=== PATIENT | female | born 1995 | race Hispanic/Latino ===

== ENCOUNTER 2021-12-03 08:25 | Inpatient (IN) | payer OTHER ==
[2021-12-03 09:03] VITALS: BMI 31.8
[2021-12-03] MEDS ORDERED: hydrALAZINE 20 MG/ML VIAL SLOW IVP PRN (09:25)
[2021-12-03 09:58] LABS: Bilirubin Neg (Negative); Blood, Urine Negative (Negative); Clarity Slightly Cloudy (Clear); Glucose, Urine (Dipstick) Normal (Negative); Ketone, Urine 5 mg/dL (Negative); Leukocyte 100 (Negative); Nitrite Positive (Negative); Protein, Urine (Dipstick) 15 mg/dl (Neg-Trace); Specific Gravity, Urine 1.005 (1.002-1.036)
[2021-12-03 10:11] LABS: Anion Gap 17 mmol/L (10-20); BUN (Urea Nitrogen) 4 mg/dL (7.0-18.7); Calc. Creatinine Clearance 167 mL/min (70-130); Calcium 8.5 mg/dL (7.8-10.44); Carbon Dioxide 18 mmol/L (22-29); Chloride 103 mmol/L (98-107); Glucose 76 mg/dL (70-105); Sodium 133 mmol/L (136-145)
[2021-12-03 10:19] LABS: Fetal Membranes Rupture No Membranes Rupture (No Rupture); Potassium 4.7 mmol/L (3.5-5.1)
[2021-12-03 10:21] LABS: #Basophils 0.1 10x3/uL (0.0-0.2); #Monocytes 1.3 10x3/uL (0.0-1.1); #Neutrophils 11.4 10x3/uL (1.5-8.4); %Basophils 0.3 % (0.0-2.0); %Eosinophils 0.1 % (0.0-6.0); %Lymphocytes 11.7 % (18.0-47.0); %Monocytes 9.1 % (0.0-10.0); %Neutrophils 78.3 % (40.0-75.0); Hemoglobin 10.3 g/dL (12.0-15.5); Mean Corpuscular HGB CONC 32.9 g/dL (32.0-36.0); Mean Corpuscular Hemoglobin 26.5 pg (27.0-33.0); Mean Corpuscular Volume 80.7 fl (81.6-98.3); Mean Platelet Volume 10.4 fl (7.4-10.4); Platelet Count 323 10x3/uL (150-450); RBC Distribution Width 14.2 % (11.5-14.5); Red Blood Cell (RBC) Count 3.88 10x6/uL (3.90-5.03); White Blood Cell (WBC) Count 14.6 10x3/uL (3.5-10.5)
[2021-12-03 10:29] LABS: Bacteria/HPF 3+ HPF (None Seen)
[2021-12-03] MEDS ORDERED: cefTRIAXone\\ROCEPHIN 2 GM in Sodium Chloride 0.9% 100 ML IVPB SCH (11:00)
[2021-12-03] MEDS: Sodium Chloride 0.9% 1,000 ML IV SCH ×2 (11:45→19:40)
[2021-12-03] MEDS: Acetaminophen 500 MG TAB PO PRN ×2 (12:58→19:35)
[2021-12-03 13:42] LABS: Bilirubin Neg (Negative); Blood, Urine 25 (Negative); Clarity Clear (Clear); Glucose, Urine (Dipstick) Normal (Negative); Ketone, Urine Negative (Negative); Leukocyte 500 (Negative); Nitrite Negative (Negative); Protein, Urine (Dipstick) Negative (Neg-Trace); Specific Gravity, Urine 1.005 (1.002-1.036)
[2021-12-03 14:08] LABS: Bacteria/HPF None Seen HPF (None Seen); RBC/HPF 0-3 HPF (0-3); Squamous Epithelial 0-3 HPF (0-3)
[2021-12-04] MEDS: Acetaminophen 500 MG TAB PO PRN ×2 (03:56→18:17)
[2021-12-04] MEDS: Sodium Chloride 0.9% 1,000 ML IV SCH (03:57)
[2021-12-04] MEDS: cefTRIAXone\\ROCEPHIN 1 GM in Sodium Chloride 0.9% 100 ML IVPB SCH (11:05)
[2021-12-04] MEDS: Prenatal Vitamin 1 TAB PO SCH (11:05)
[2021-12-05] MEDS: Prenatal Vitamin 1 TAB PO SCH (09:06)
[2021-12-05] MEDS: cefTRIAXone\\ROCEPHIN 1 GM in Sodium Chloride 0.9% 100 ML IVPB SCH (12:12)
[2021-12-05] MEDS: Acetaminophen 500 MG TAB PO PRN (12:15)
[2021-12-05 16:45] VITALS: BP 103/59; TEMP 97.9
== END 2021-12-05 17:44 | disposition home or self-care (01) | DRG 833 ==
LOC: CSHLD/OP 08:25 → CSHANTE 13:52
PROVIDERS: ADMIT Obstetrics & Gynecology; ATTEND Obstetrics & Gynecology
DX: O23.03 Infections of kidney in pregnancy, third trimester (principal); Z3A.30 30 weeks gestation of pregnancy; Z20.822 Contact with and (suspected) exposure to COVID-19; D64.9 Anemia, unspecified; O99.013 Anemia complicating pregnancy, third trimester
CPT/HCPCS: 36415; 76770; 80048; 81001; 84112; 85025; 87077; 87086; 87186; J0696; J3490; J7050

== ENCOUNTER 2022-02-04 02:33 | Inpatient (IN) | payer OTHER ==
[2022-02-04] MEDS ORDERED: Ibuprofen 800 MG TAB PO PRN (03:12)
[2022-02-04] MEDS ORDERED: Lidocaine 1% (PF) 30 ML VIAL SC PRN (03:12)
[2022-02-04] MEDS ORDERED: Carboprost 250 MCG/ML AMP IM PRN (03:12)
[2022-02-04] MEDS ORDERED: HYDROcodone/Acetaminophen 5/325 mg Tablet PO PRN ×4 (03:12→11:31)
[2022-02-04] MEDS ORDERED: Methylergonovine 0.2 MG/ML VIAL IM PRN (03:12)
[2022-02-04] MEDS ORDERED: Misoprostol 200 MCG TAB PR PRN (03:12)
[2022-02-04] MEDS ORDERED: Ondansetron PF 4 MG/2 ML Vial IVP PRN ×2 (03:14→11:31)
[2022-02-04] MEDS ORDERED: Docusate 100 MG CAP PO PRN (03:14)
[2022-02-04] MEDS ORDERED: Promethazine HCl 25 MG/ML VIAL IM PRN (03:14)
[2022-02-04] MEDS ORDERED: Acetaminophen 500 MG TAB PO PRN (03:14)
[2022-02-04] MEDS ORDERED: hydrALAZINE 20 MG/ML VIAL SLOW IVP PRN ×2 (03:14→11:31)
[2022-02-04] MEDS ORDERED: NS w/ Oxytocin 30 units 500 ML IV SCH ×3 (03:15→11:31)
[2022-02-04 03:19] VITALS: BMI 31.8
[2022-02-04 04:05] LABS: Hep B Surf Ag Non-Reactive S/CO (NonReactive); Syphilis Antibody Nonreactive (Nonreactive); Syphilis Antibody Index 0.08 S/CO (<1.00 Non-Reactive)
[2022-02-04 04:06] LABS: Hemoglobin 10.7 g/dL (12.0-15.5); Mean Corpuscular HGB CONC 31.7 g/dL (32.0-36.0); Mean Corpuscular Hemoglobin 24.8 pg (27.0-33.0); Mean Corpuscular Volume 78.4 fl (81.6-98.3); Mean Platelet Volume 11.9 fl (7.4-10.4); Platelet Count 306 10x3/uL (150-450); RBC Distribution Width 16.3 % (11.5-14.5); Red Blood Cell (RBC) Count 4.31 10x6/uL (3.90-5.03); White Blood Cell (WBC) Count 10.9 10x3/uL (3.5-10.5)
[2022-02-04 04:54] LABS: SARS-CoV-2 NAA Rapid Test Not Detected (NotDetected)
[2022-02-04] MEDS ORDERED: NS w/ Oxytocin 30 units 500 ML ONE (08:55)
[2022-02-04] MEDS ORDERED: Bisacodyl 10 MG SUPP PR PRN (11:31)
[2022-02-04] MEDS ORDERED: Milk Of Magnesia 30 ML UDCUP PO PRN (11:31)
[2022-02-04] MEDS ORDERED: Boostrix 0.5 ML (Tdap) VIAL IM ONE (11:31)
[2022-02-04] MEDS ORDERED: diphenhydrAMINE 25 MG CAP PO PRN (11:31)
[2022-02-04] MEDS ORDERED: Benzocaine-Menthol 82.5 ML CAN TOP PRN (11:31)
[2022-02-04] MEDS ORDERED: Preparation H Ointment 28 GM TUBE PR PRN (11:31)
[2022-02-04] MEDS ORDERED: Lanolin Ointment 7 GM TUBE TOP PRN (11:31)
[2022-02-04] MEDS: Ferrous Sulfate 325 MG TAB PO SCH (19:44)
[2022-02-04] MEDS: Ibuprofen 800 MG TAB PO SCH ×2 (19:44→21:33)
[2022-02-04] MEDS: Docusate 100 MG CAP PO SCH (21:33)
[2022-02-05] MEDS: Ibuprofen 800 MG TAB PO SCH (05:42)
[2022-02-05 07:43] VITALS: BP 110/56; TEMP 98.2
[2022-02-05] MEDS: Ferrous Sulfate 325 MG TAB PO SCH (08:52)
[2022-02-05] MEDS: Docusate 100 MG CAP PO SCH (08:53)
[2022-02-05] MEDS ORDERED: Prenatal Vitamin 1 TAB PO SCH (09:00)
== END 2022-02-05 13:40 | disposition home or self-care (01) | DRG 807 ==
LOC: CSHLD/OP 02:33 → CSHLD 04:17 → CSHPED 16:00
PROVIDERS: ADMIT Obstetrics & Gynecology; ATTEND Obstetrics & Gynecology
PROC: 10E0XZZ Delivery of Products of Conception, External Approach (ICD-10-PCS; principal; 2022-02-04)
DX: O80 Encounter for full-term uncomplicated delivery (principal); Z37.0 Single live birth; Z3A.39 39 weeks gestation of pregnancy; Z20.822 Contact with and (suspected) exposure to COVID-19
CPT/HCPCS: 85027; 86780; 86850; 86900; 86901; 87340; 99285; J2590; U0002